=== PATIENT | male | born 1980 | race Caucasian/White ===

== ENCOUNTER 2017-03-06 17:29 | Emergency (ER) | payer BC ==
[2017-03-06 18:33] LABS: HEMOGLOBIN 15.5 gm/dl (14.0-17.5); RED BLOOD COUNT 5.24 M/UL (4.20-5.50); WHITE BLOOD COUNT 9.8 K/UL (4.5-11.0)
[2017-03-06 18:50] LABS: BUN/CREATININE RATIO 13 (0-10)
== END 2017-03-06 19:55 | disposition home or self-care (01) ==
LOC: ER1 17:29
PROVIDERS: Emergency Medicine
DX: R10.9 Unspecified abdominal pain (principal); R11.0 Nausea; Z79.899 Other long term (current) drug therapy
CPT/HCPCS: 36415; 80053; 81001; 83690; 85025; 87086; 99284

== ENCOUNTER 2017-05-20 11:00 | Emergency (ER) | payer BC | END 2017-05-20 11:53 | disposition home or self-care (01) | LOC: ER1 11:00 | DX: S01.311A Laceration without foreign body of right ear, initial encounter (principal); W22.8XXA Striking against or struck by other objects, initial encounter; F17.210 Nicotine dependence, cigarettes, uncomplicated | CPT/HCPCS: 12011; 90471; 90714; 99282 ==

== ENCOUNTER → 2020-12-08 | Outpatient (CLI) | payer OTHER ==
[~2020-12-08] MED LIST: CYCLOBENZAPRINE5 MG PO; IBUPROFEN800 MG PO; NORCO 5-325 TA1 EACH PO; ROBITUSSIN DM473 ML PO; VIBRAMYCIN100 MG PO
== END ==
LOC: KOH-I 11-30 09:00
DX: S82.51XA Displaced fracture of medial malleolus of right tibia, initial encounter for closed fracture (principal); M25.371 Other instability, right ankle; X58.XXXA Exposure to other specified factors, initial encounter
CPT/HCPCS: 73721

== ENCOUNTER → 2021-02-07 | Outpatient (CLI) | payer OTHER | LOC: KOH-I 09:51 | DX: R05 Cough (principal) | CPT/HCPCS: 71046 ==